=== PATIENT | male | born 1980 | race Hispanic/Latino ===

== ENCOUNTER → 2018-04-18 | Day surgery (SDC) | payer OTHER ==
--- NOTE | 2018-04-16 12:39 | History & Physical Pre-Op ---
General Information and HPI History of Present Illness: Barney is a 38-year-old male is involving the fourth and fifth digits right foot. The patient has undergone an extended course of conservative care, including shoe gear and activity modification, rest, immobilization course of NSAIDs. None of this is yielded from any significant relief. The patient presents today for preoperative surgical consultation. The patient was referred to our office from Paresh Plascencia DPM. Past History Surgical History Pertinent Surgical History: none Review of Systems Review of Systems: Unremarkable except for that noted in history present illness Exam & Diagnostic Data Physical Exam: Lungs clear bilaterally. Heart sounds rate and rhythm regular. Lower extremity physical exam demonstrates intact pedal pulses bilaterally. Both the dorsalis pedis and posterior tibial arteries are palpable bilaterally. Patient without any sensory motor deficits. Deep tendon reflexes are grossly intact. Patient noted to have significant pain with palpation to the dorsal aspect of the proximal interphalangeal joints of the fourth and fifth digits right foot. Assessment/Plan Assessment/Plan: Painful hammertoes right foot. A lengthy discussion reviewing both surgical and conservative options with him the patient at bedside and the patient elected to go forward with surgery despite the risks. As Ranked By This Provider Problem List: 1. Other hammer toe(s) (acquired), right foot Attending MD Review Statement Attending Statement Attending MD Statement: examined this patient
[~2018-04-18] VITALS: Ht 180.3 cm; Wt 90.7 kg
--- NOTE | 2018-04-18 08:54 | Operative Report ---
Operative/Inv Procedure Report Surgery Date: 04/18/18 Name of Procedure: 1 arthroplasty fourth toe right foot 2 arthroplasty fifth toe right foot 3 intraoperative menstruation Jan anesthesia Pre-Operative Diagnosis: 1 hammertoe fourth toe right 2 hammertoe fifth toe right foot Post-Operative Diagnosis: The same Estimated Blood Loss: scant Surgeon/Mitochondrial Disorders Counselor: Frandy Duron DPM Anesthesia: moderate sedation, block Operative/Procedure Note Note: After obtaining informed consent the patient was brought to the operating room and placed on the operating table in the supine position. The patient was then securely fastened to the operating table utilizing a safety belt. After administration of IV sedation, 10 cc of 0.5% Marcaine plain was infiltrated by the patient's right ankle. A well-padded ankle tourniquet was placed about the patient's right lower extremity. 2 g of Ancef were delivered intravenously times the right foot and ankle were then scrubbed, prepped and draped in the usual aseptic manner. The right lower extremity was elevated to exam of the limb, at which point the ankle tourniquet was inflated 250 mmHg. Attention was directed to the dorsal aspect of the right foot, where a transversely oriented semielliptical incision centered over the proximal phalangeal joint were incised with 15 blade. The dissection was carried down to this obtains tissues. The ellipses of skin were freed and passed from the operative field. Transverse tenotomies were then performed exposing the heads of the proximal phalanges of the fourth and fifth digits. These were then removed with a sagittal bone saw. The wounds were then irrigated with copious amounts of normal sterile saline. The extensor tendons were reapproximated with 4-0 Vicryl. Skin edges reapproximated with 4-0 nylon. The incision was dressed with Xeroform, 4 x 4's, Kerlix and an Jefry wrap. The patient was noted to tolerated both procedure and anesthesia well and the patient was transported from the operating room to recovery with vital signs stable and vascular status intact to all digits right foot.
== END ==
LOC: STS 01:58
DX: M20.41 Other hammer toe(s) (acquired), right foot (principal)
CPT/HCPCS: 88304; J0690; J1885; J2001; J2250